=== PATIENT | male | born 1995 | race Caucasian/White ===

== ENCOUNTER 2018-06-21 15:21 | Emergency (ER) | payer OTHER ==
[~2018-06-21] VITALS: Ht 167.6 cm; Wt 93.4 kg
[2018-06-21 15:33] VITALS: BP 146/61
[2018-06-21 15:54] LABS: LYMPHOCYTES % (AUTO) 26 % (22-44); MEAN CORPUSCULAR HGB CONC 34.4 g/dL (33.2-36.2); MEAN CORPUSCULAR VOLUME 87.2 fL (81-97); MEAN PLATELET VOLUME 7.8 fL (7.4-10.4); NEUTROPHILS % (AUTO) 61 % (42-75); PLATELET COUNT 309 x10^3/uL (130-400); RED BLOOD COUNT 5.31 x10^6/uL (4.38-5.82); RED CELL DISTRIBUTION WIDTH 13.3 % (9.4-14.8)
[2018-06-21 15:55] LABS: BASOPHILS # (AUTO) 0.08 x10^3/uL (0-0.1); BASOPHILS % (AUTO) 1 % (0-1); EOSINOPHILS # (AUTO) 0.33 x10^3/uL (0-0.4); EOSINOPHILS % (AUTO) 3 % (1-7); LYMPHOCYTES # (AUTO) 2.65 x10^3/uL (1-3.4); MD NO; MONOCYTES # (AUTO) 0.92 x10^3/uL (0.2-0.8); MONOCYTES % (AUTO) 9 % (2-9); NEUTROPHILS # (AUTO) 6.19 x10^3/uL (1.8-6.8)
[2018-06-21 16:05] LABS: ALANINE AMINOTRANSFERASE 85 U/L (12-78); ALBUMIN 4.2 g/dL (3.4-5.0); ANION GAP 7 mmol/L (5-15); CALCIUM 8.5 mg/dL (8.5-10.1); CHLORIDE 109 mmol/L (98-107)
[2018-06-21 16:07] LABS: ALKALINE PHOSPHATASE 73 U/L (45-117); BILIRUBIN,TOTAL 0.8 mg/dL (0.2-1.0); TOTAL PROTEIN 7.8 g/dL (6.4-8.2)
== END 2018-06-21 16:46 | disposition home or self-care (01) ==
LOC: ED 16:10
DX: R19.7 Diarrhea, unspecified (principal); R94.5 Abnormal results of liver function studies; R11.0 Nausea; Z88.5 Allergy status to narcotic agent
CPT/HCPCS: 36415; 80053; 85025; 99283